=== PATIENT | female | born 1955 | race Caucasian/White ===

== ENCOUNTER → 2023-02-25 23:19 | Outpatient (CLI) | payer MEDICARE, MEDICAID, SELFPAY ==
[2023-02-25 19:49] LABS: Basophils # 0.1 K/mm3 (0-0.2); Basophils % 0.5 % (0.1-2.0); Eosinophils # 0.2 K/mm3 (0.0-0.4); Eosinophils % 2.2 % (0.1-12.0); Hematocrit 45.8 % (37.0-47.0); Hemoglobin 14.5 g/dL (12.2-16.2); Lymphocytes # 1.8 K/mm3 (0.7-4.5); Lymphocytes % 19.4 % (10-50); Mean Corpuscular HGB Conc 31.6 g/dL (31.8-35.4); Mean Corpuscular Hemoglobin 29.9 pg (27.0-31.2); Mean Corpuscular Volume 94.5 fl (81-99); Mean Platelet Volume 9.1 fl (7.4-10.4); Monocytes # 0.6 K/mm3 (0.1-1.0); Monocytes % 6.1 % (1.7-9.3); Neutrophils # 6.6 K/mm3 (1.8-7.8); Neutrophils % 71.8 % (37.0-80.0); Platelet Count 232 K/mm3 (142-424); Red Blood Count 4.85 M/mm3 (4.20-5.40); Red Cell Distribution Width 16.3 % (11.5-17.5); White Blood Count 9.2 K/mm3 (4.8-10.8)
[2023-02-25 19:54] LABS: Alanine Aminotransferase 19 U/L (12-78); Albumin Level 4.1 g/dl (3.5-5.0); Albumin/Globulin Ratio 1.4 (1.1-1.8); Alkaline Phosphatase 164 U/L (38-126); Aspartate Amino Transferase 25 U/L (14-36); Bilirubin,Total 0.5 mg/dl (0.2-1.3); Blood Urea Nitrogen 17 mg/dl (7-17); Calcium 9.3 mg/dl (8.4-10.2); Carbon Dioxide 26 mmol/L (22.0-30.0); Chloride 100 mmol/L (98-107); Estimated Glomerular Filt Rate 100 ml/min (>60); GFR (African American) 121 ML/MIN (>60); Glucose 84 mg/dl (74-100); Sodium 139 mmol/L (136-145); Total Protein,Serum 7.1 g/dl (6.3-8.2)
[2023-02-25 20:09] LABS: Erythrocyte Sedimentation Rate 17 mm/hr (0-30)
[2023-02-25 20:22] LABS: Thyroid Stimulating Hormone 1.73 uIU/mL (0.465-4.68)
[2023-02-25 20:40] LABS: Vitamin B12 346 pg/mL (239-931)
== END ==
PROVIDERS: PCP Family Medicine; Visit Provider Family Medicine
DX: G89.29 Other chronic pain (principal); M47.816 Spondylosis without myelopathy or radiculopathy, lumbar region; Z76.0 Encounter for issue of repeat prescription; Z79.899 Other long term (current) drug therapy
CPT/HCPCS: 80053; 82607; 84443; 85025; 85651

== ENCOUNTER → 2023-04-08 15:32 | Outpatient (CLI) | payer MEDICARE, MEDICAID, SELFPAY ==
[2023-04-08 18:12] LABS: Basophils # 0.1 K/mm3 (0-0.2); Basophils % 0.4 % (0.1-2.0); Eosinophils # 0.2 K/mm3 (0.0-0.4); Eosinophils % 1.6 % (0.1-12.0); Hematocrit 49.7 % (37.0-47.0); Hemoglobin 15.6 g/dL (12.2-16.2); Lymphocytes % 16.1 % (10-50); Mean Corpuscular HGB Conc 31.3 g/dL (31.8-35.4); Mean Corpuscular Hemoglobin 30.8 pg (27.0-31.2); Mean Corpuscular Volume 98.4 fl (81-99); Mean Platelet Volume 9.2 fl (7.4-10.4); Monocytes # 0.8 K/mm3 (0.1-1.0); Monocytes % 6.3 % (1.7-9.3); Neutrophils # 9.3 K/mm3 (1.8-7.8); Neutrophils % 75.6 % (37.0-80.0); Platelet Count 197 K/mm3 (142-424); Red Blood Count 5.06 M/mm3 (4.20-5.40); Red Cell Distribution Width 15.9 % (11.5-17.5); White Blood Count 12.4 K/mm3 (4.8-10.8)
[2023-04-08 18:30] LABS: Alanine Aminotransferase 23 U/L (12-78); Albumin Level 4.5 g/dl (3.5-5.0); Albumin/Globulin Ratio 1.4 (1.1-1.8); Alkaline Phosphatase 152 U/L (38-126); Anion Gap 16.8 mEq/L (5-15); Aspartate Amino Transferase 25 U/L (14-36); Bilirubin,Total 0.4 mg/dl (0.2-1.3); Blood Urea Nitrogen 23 mg/dl (7-17); Calcium 9.8 mg/dl (8.4-10.2); Carbon Dioxide 34 mmol/L (22.0-30.0); Chloride 96 mmol/L (98-107); Estimated Glomerular Filt Rate 100 ml/min (>60); GFR (African American) 121 ML/MIN (>60); Globulin 3.3 g/dL (1.3-3.2); Glucose 97 mg/dl (74-100); Potassium 4.8 mmoL/L (3.5-5.1); Sodium 142 mmol/L (136-145); Total Protein,Serum 7.8 g/dl (6.3-8.2)
== END ==
PROVIDERS: PCP Family Medicine; Visit Provider Family Medicine
DX: M47.816 Spondylosis without myelopathy or radiculopathy, lumbar region (principal); I48.91 Unspecified atrial fibrillation
CPT/HCPCS: 80053; 80162; 85025

== ENCOUNTER 2023-06-26 13:07 | Inpatient (IN) | payer MEDICARE, MEDICAID, SELFPAY ==
[2023-06-26] VITALS (20 sets, daily range): BP systolic 102–142; BP diastolic 50–92; PULSE 89–121; RESP 12–20; TEMP 36.7–37.2; O2SAT 90–98; BMI 31.7
--- NOTE | 2023-06-26 07:09 | IR_ITS ---
APPROVED REPORT Patient Location: Outpatient PROCEDURES Left heart catheterization Left ventriculogram Selective coronary angiogram Intravascular lithotripsy to the proximal LAD Drug-eluting stent deployment to the proximal LAD INDICATION Acute anterior ST elevation myocardial infarction, Coronary artery disease, Proximal coronary artery calcification Informed consent was obtained prior to the procedure. COMPLICATIONS None Estimated Blood Loss: Less than 10 ml TECHNIQUE One percent lidocaine used to anesthetize the right anterior aspect of the wrist. The right radial artery was accessed via the Seldinger technique. A 6 Faroese sheath was placed in the right radial artery. 2.5 mg of Verapamil, 800 mcg of nitroglycerin, 1mg Lidocaine and 5000 U Heparin were given through the arterial sheath. The papa catheter was also used to perform selective coronary angiography of the right coronary artery. During the engagement of the right coronary artery there was significant ST elevation identified on the EKG. Patient was restless with chest pain. The right coronary artery was widely patent therefore the catheter was inserted into the left main artery and angiography was performed. The proximal LAD was occluded. The acute anterior ST elevation myocardial infarction appeared to fortuitously occur during the diagnostic angiogram. At this point therapeutic Was administered giving a therapeutic ACT and a Choice PT extra-support wire was placed into the LAD. A 2.5 mm balloon was used to open the occluded LAD and restore CRISTO-3 flow. A 3 mm x 12 mm shockwave lithotripsy balloon was deployed at 8 and 10 mio for a full 80 pulsations throughout the proximal LAD. A 3.5 x 38 mm Sahil frontier stent was placed in the proximal LAD immediately proximal to the large diagonal artery and deployed at 20 mio. A 4 mm x 15 mm [place] frontier stent was placed proximal to the for stent yet still overlapping it and deployed at 18 mio. The balloon was advanced into the 3.5 mm stent and deployed at 18 mio in the proximal and mid 4/5 of the stent. At the end of the procedure CRISTO-3 flow was restored with CRISTO 0 flow present at the beginning of the procedure. During the procedure the apparatus was removed the sheath was removed good hemostasis was achieved and TR banding patient was transferred to the postop holding in stable condition ANGIOGRAPHIC RESULTS The left main artery Normal The left anterior descending artery Acutely occluded. Following revascularization the proximal and mid LAD was widely patent with excellent inline flow. Large first diagonal artery had a proximal 70 to 80% stenosis The circumflex artery Nondominant yet still large with proximal 20% stenosis and 20% stenosis of the large first obtuse marginal artery. A second obtuse marginal artery had 20% proximal stenoses as well The right coronary artery Is a large dominant vessel and has proximal 20% and 30% stenoses with a mid vessel eccentric 20 to 30% stenosis The KELLER ventriculogram reveals Dilated ventricle anterior wall hypokinesis estimate ejection fraction 20 to 25% The left ventricular end-diastolic pressure 30 mmHg IMPRESSION Acute on chronic occlusion of the LAD with fortuitous acute occlusion of the proximal vessel prior to angiography accompanied by profound ST elevation and chest pain Successful intravascular lithotripsy to the proximal LAD followed by drug-eluting stenting reducing the 100% occlusion to 0% with 2 contiguous drug-eluting stents Large anterior wall defect with reduced ejection fraction Elevated LVEDP PLAN 1. Plavix 75 mg plus aspirin 81 mg combined with Eliquis for the next 30 days and then discontinue aspirin while maintaining Plavix daily and Eliquis 2. Admission to the hospital due to acute anterio
[2023-06-26 08:51] LABS: Basophils # 0.1 K/mm3 (0-0.2); Basophils % 0.6 % (0.1-2.0); Eosinophils # 0.2 K/mm3 (0.0-0.4); Eosinophils % 2.2 % (0.1-12.0); Hematocrit 50.2 % (37.0-47.0); Hemoglobin 16.3 g/dL (12.2-16.2); Lymphocytes # 1.9 K/mm3 (0.7-4.5); Lymphocytes % 20.3 % (10-50); Mean Corpuscular HGB Conc 32.5 g/dL (31.8-35.4); Mean Corpuscular Hemoglobin 32.8 pg (27.0-31.2); Mean Platelet Volume 8.8 fl (7.4-10.4); Monocytes # 0.4 K/mm3 (0.1-1.0); Monocytes % 4.7 % (1.7-9.3); Neutrophils # 6.8 K/mm3 (1.8-7.8); Neutrophils % 72.2 % (37.0-80.0); Platelet Count 206 K/mm3 (142-424); Red Blood Count 4.97 M/mm3 (4.20-5.40); Red Cell Distribution Width 14.7 % (11.5-17.5); White Blood Count 9.4 K/mm3 (4.8-10.8)
[2023-06-26 08:56] LABS: Chloride 100 mmol/L (98-107); Sodium 138 mmol/L (136-145)
[2023-06-26 08:59] LABS: Blood Urea Nitrogen 9 mg/dl (7-17); Creatinine Clearance Estimated 67 mL/min (50-200); Estimated Glomerular Filt Rate 124 ml/min (>60); GFR (African American) 150 ML/MIN (>60)
[2023-06-26 09:00] LABS: Calcium 8.5 mg/dl (8.4-10.2); Carbon Dioxide 27 mmol/L (22.0-30.0); Glucose 153 mg/dl (74-100)
[2023-06-26 13:14] LABS: CATHL Activated Clotting Time 186 SEC (74-125)
--- NOTE | 2023-06-26 14:08 | HMH.PHAINT1 ---
Pharmacy Intervention Comments: MEDICATION RECONCILIATION COMPLETED ON PATIENT USING EXTERNAL FILL HISTORY FROM PHARMACY. -ISABELA NICK, KELLID
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
[2023-06-27] VITALS (11 sets, daily range): BP systolic 89–109; BP diastolic 45–78; PULSE 81–143; RESP 13–20; TEMP 36.7–37.2; O2SAT 92–97; BMI 31.7
--- NOTE | 2023-06-27 09:06 | CA_ITS ---
APPROVED REPORT EXAM: Comprehensive 2D, Doppler, and color-flow Echocardiogram [employer]: Polina Joyce RT(R) Ht: 5 ft 1 in Wt: 161lbs BSA: 1.72 BP: 119/76 mmHg Indications: Afib, CAD, EF 20-25% on cath 06/26/23, COPD, smoker, HTN, DM, hyperlipidemia, STEMI Echo Enhancing Agent Indication: Endocardial border delineation Agent(s) / Amount(s) Used: Definity 2 cc 2D Dimensions LVOT 1.77 cm (M/F) 1.5-2.5 LVEF (Linares's) 35.00 % F: 54 - 74 LV Volume 74.10 mL F: 46 - 106 LV Volume Index 43.08 mL/m2 F: 29 - 61 LA Volume 73.70 mL LA Volume Index 42.85 mL/m2 (M/F) 16-34 M-Mode Dimensions RVDd 3.26 cm (0.9-2.6) LA Diam 3.70 cm (1.9-4.0) LVDd 4.21 cm (3.5-5.7) Ao Diam 2.44 cm (2.0-3.7) LVDs 3.68 cm (3.5-5.7) IVSd 0.68 cm (0.6-1.1) PWd 0.80 cm (0.6-1.1) EF (Teich) 27.30% FS 12.60% EDV (Teich) 79.00 mL ESV (Teich) 57.40 mL Tricuspid Valve TR P. Velocity 283.00 cm/s RAP Estimate 15.00 mmHg RVSP 47.10 mmHg Left Ventricle The left ventricle is normal size. Left ventricular systolic function is severely decreased. There is normal left ventricular wall thickness. Severe global hypokinesis is present. There is akinesis of the septal, anteroseptal, anterior, anterolateral, and lateral LV sheth. Diastolic function is indeterminate due to atrial fibrillation. LVEF is 20%. Right Ventricle The right ventricle is mildly dilated. The right ventricular systolic function is mildly reduced. Atria The left atrium is mildly dilated. The right atrium is mildly dilated. There is no Doppler evidence of interatrial shunt. Aortic Valve The aortic valve is mildly thickened. There is no aortic valvular stenosis. Trace aortic regurgitation. Mitral Valve The mitral valve is mildly thickened. The posterior leaflet appears tethered with restricted motion. No evidence of mitral valve stenosis. Moderate mitral regurgitation (Clark class IIIB). The MR jet is eccentric and posteriorly directed in the setting of tethered posterior MV leaflet. Tricuspid Valve The tricuspid valve leaflets are thin and pliable. Moderate tricuspid regurgitation. Elevated RVSP 45-50 mmHg. Pulmonic Valve The pulmonary valve is grossly normal in structure. Trace pulmonic regurgitation. Great Vessels The aortic root is normal in size. The ascending aorta is normal in size. The IVC is normal in size, but collapses < 50% with respirophasic variation. RA pressure is estimated at 8 mmHg. Pericardium There is no pericardial effusion. A pleural effusion is present. Other Information Study Quality: Fair Conclusion Severe reduction in LV systolic function. Severe global hypokinesis is present. There is akinesis of the septal, anteroseptal, anterior, anterolateral, and lateral LV sheth. Mildly dilated RV with mild reduction in RV systolic function. Tethered posterior MV leaflet with moderate, eccentric posteriorly directed MR (Clark class IIIB). Moderate TR. Elevated RVSP 40-45 mmHg. Electronically signed by : Yudith Zamora MD 06/27/2023 10:58:18
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
[2023-06-27 10:07] LABS: Basophils # 0.1 K/mm3 (0-0.2); Basophils % 0.5 % (0.1-2.0); Eosinophils # 0.2 K/mm3 (0.0-0.4); Hemoglobin 15.5 g/dL (12.2-16.2); Lymphocytes # 1.7 K/mm3 (0.7-4.5); Lymphocytes % 15.9 % (10-50); Mean Corpuscular HGB Conc 33.7 g/dL (31.8-35.4); Mean Corpuscular Hemoglobin 34.4 pg (27.0-31.2); Mean Corpuscular Volume 102.1 fl (81-99); Mean Platelet Volume 8.8 fl (7.4-10.4); Monocytes # 0.7 K/mm3 (0.1-1.0); Monocytes % 6.2 % (1.7-9.3); Neutrophils # 7.9 K/mm3 (1.8-7.8); Neutrophils % 75.5 % (37.0-80.0); Platelet Count 202 K/mm3 (142-424); Red Cell Distribution Width 14.9 % (11.5-17.5); White Blood Count 10.5 K/mm3 (4.8-10.8)
[2023-06-27 10:14] LABS: Alanine Aminotransferase 19 U/L (12-78); Alkaline Phosphatase 104 U/L (38-126); Anion Gap 14.6 mEq/L (5-15); Aspartate Amino Transferase 26 U/L (14-36); Bilirubin,Direct 0.3 mg/dl (0.0-0.4); Bilirubin,Indirect 0.2 mg/dL (0.0-0.9); Bilirubin,Total 0.5 mg/dl (0.2-1.3); Bilirubin,Unconjugated 0.3 mg/dL (0.0-1.1); Blood Urea Nitrogen 12 mg/dl (7-17); Calcium 8.9 mg/dl (8.4-10.2); Carbon Dioxide 22 mmol/L (22.0-30.0); Chloride 105 mmol/L (98-107); Chol/HDL Ratio 4.1 (1-3.5); Cholesterol 107 mg/dl (140-200); Creatinine Clearance Estimated 67 mL/min (50-200); Estimated Glomerular Filt Rate 100 ml/min (>60); GFR (African American) 121 ML/MIN (>60); Glucose 177 mg/dl (74-100); HDL Cholesterol 26 mg/dl (40-60); Potassium 4.6 mmoL/L (3.5-5.1); Sodium 137 mmol/L (136-145); Triglycerides 124 mg/dl (30-150); VLDL Cholesterol 25 mg/dL (0-40)
--- NOTE | 2023-06-27 10:23 | PC.NURSE ---
Spoke with Guerline in regards to pt's Lifevest. List of documents needed: H&P, face sheet, cardiac consult, echo, heart cath report and note from Yanira Bautista. [phone].
[2023-06-27 10:25] LABS: Direct LDL Cholesterol 64.51 mg/dL (100-129)
--- NOTE | 2023-06-27 10:46 | PC.NURSE ---
Pt refused jardiance. Stated that she gets a rash from it.
--- NOTE | 2023-06-27 13:12 | HMH.PHAINT1 ---
Pharmacy Intervention Comments: DISCHARGE MEDICATION COUNSELING PROVIDED. DISCUSSED STARTING THE FOLLOWING: -ATORVASTATIN (FOR CHOLESTEROL, DAILY AT BEDTIME, WATCH FOR MUSCLE PAIN OR WEAKNESS) -PLAVIX (BLOOD THINNER, DAILY, BLEED/BRUISE RISK, BLEED LOCATION AND APPEARANCE, BUMP HEAD = GO TO ER TO RULE OUT BLEED) -JARDIANCE (PATIENT STATES SHE IS ALLERGIC, STATING IT CAUSES A RASH/HIVES TO DEVELOP ON HER HANDS, ADVISED HER TO TELL HOME PHARMACY THAT SHE DOES NOT NEED THIS MEDICATION, PATIENT STATES SHE TOLD CARDIOLOGY AND NURSE BAIRES STATES THAT CARDIOLOGY WAS MADE AWARE.) -SPIRONOLACTONE (FLUID PILL, DAILY, BREAST PAIN POSSIBLE) PATIENT VERBALIZED NO QUESTIONS AT THIS TIME.
--- NOTE | 2023-06-27 14:05 | PC.NURSE ---
Joana in with pt explaining Lifevest.
--- NOTE | 2023-06-30 11:43 | EXP.DC.SUM ---
General Admission date:: 06/26/23 Discharge date: 06/27/23 HPI HPI HPI: Patient is a 67-year-old female with past medical history of CAD, tobacco use presented to hospital due to cardiac cath procedure patient had abnormal cardiac work-up, patient was recommended to get cardiac cath. On my evaluation patient is a s/p cardiac cath, she denies chest pain shortness of breath nausea vomiting diarrhea constipation dysuria fevers and chills, she denies active chest pain. Hospital Course Hospital Course Hospital Course: Patient is a 67-year-old female with past medical history of CAD, tobacco use presented to hospital due to cardiac cath procedure patient had abnormal cardiac work-up, patient was recommended to get cardiac cath. On my evaluation patient is a s/p cardiac cath, she denies chest pain shortness of breath nausea vomiting diarrhea constipation dysuria fevers and chills, she denies active chest pain. Assessment CAD status post cardiac stress test ST elevation IL ST elevation IL Hypertension Hyperlipidemia Chronic pain History of Asthma Diabetes mellitus Patient was prescribed medications recommended by cardiology, patient felt better and cardiology cleared patient for discharge, patient was discharged in stable conditions. Exam Data for Last 24 hours Vital signs and Labs for Last 24 Hours: Temp Pulse Resp BP Pulse Ox O2 Del Method O2 Flow Rate 98.9 F 112 H 20 90/50 L 93 L Room Air 2 06/27/23 12:00 06/27/23 12:00 06/27/23 12:00 06/27/23 12:00 06/27/23 12:00 06/27/23 13:00 06/26/23 15:31 I & O for Last 24 hours: Intake & Output 06/27/23 06/28/23 06/29/23 06/30/23 23:59 23:59 23:59 23:59 Intake Total 942 / 942 Output Total 0 / 0 Balance 942 / 942 Weight 76.2 kg Constitutional Constitutional: no acute distress *Routine HEENT Exam Head: Present normocephalic Eye: Present EOMI and PERRL ENT: Present mucous membranes moist *Routine Neck Exam Neck: Present supple; Absent lymphadenopathy *Routine Respiratory Exam Respiratory: Present CTA bilaterally *Routine Cardiovascular Exam Cardiovascular: Present RRR *Routine Abdominal Exam Abdominal: Present soft and normoactive bowel sounds; Absent tenderness *Routine Extremities Exam Extremities: Absent cyanosis, clubbing or edema *Routine Skin Exam Skin: Present warm; Absent rash *Routine Neurological Exam Neurological: Present alert and oriented X3 DS: Diagnosis Discharge Diagnosis (1) ST elevation myocardial infarction (STEMI) of anterior wall: Status: Acute Code(s): I21.09 - ST elevation (STEMI) myocardial infarction involving other coronary artery of anterior wall (2) Coronary artery disease: Status: Acute Code(s): I25.10 - Atherosclerotic heart disease of [place] coronary artery without angina pectoris Qualifiers: Coronary Disease-Associated Artery/Lesion type: [place] artery [place] vs. transplanted heart: [place] heart Associated angina: without angina Qualified Code(s): I25.10 - Atherosclerotic heart disease of [place] coronary artery without angina pectoris (3) Stented coronary artery: Status: Acute Code(s): Z95.5 - Presence of coronary angioplasty implant and graft (4) HFrEF (heart failure with reduced ejection fraction): Status: Acute Code(s): I50.20 - Unspecified systolic (congestive) heart failure (5) Ischemic cardiomyopathy: Status: Acute Code(s): I25.5 - Ischemic cardiomyopathy (6) Elevated left ventricular end-diastolic pressure (LVEDP): Status: Acute Code(s): R94.30 - Abnormal result of cardiovascular function study, unspecified (7) Hypertension: Status: Acute Code(s): I10 - Essential (primary) hypertension Qualifiers: Hypertension type: primary hypertension Qualified Code(s): I10 - Essential (primary) hypertension (8) Hyperlipidemia: Status: Acute Code(s): E78.5 - Hyperlip
--- NOTE | 2023-06-30 11:54 | CARE MANAGER ---
Called and spoke with patient regarding recent discharge. Patient stated that she is doing well. She states that she has started all new medication with the exception of Jardiance, which she says she is allergic to. I explained that she should call and let cardiology know that she isn't taking it. No other concerns voiced at this time.
== END 2023-06-27 14:46 | disposition home or self-care (01) | DRG 324 ==
LOC: 2ND 13:08
PROVIDERS: Internal Medicine; Nurse Practitioner Family; Admitting Provider Internal Medicine; PCP Family Medicine; Visit Provider Internal Medicine
PROC: 027035Z Dilation of Coronary Artery, One Artery with Two Drug-eluting Intraluminal Devices, Percutaneous Approach (ICD-10-PCS; principal; 2023-06-26 10:00)
DX: I21.09 ST elevation (STEMI) myocardial infarction involving other coronary artery of anterior wall (principal); I48.20 Chronic atrial fibrillation, unspecified; I50.22 Chronic systolic (congestive) heart failure; I25.5 Ischemic cardiomyopathy; J44.9 Chronic obstructive pulmonary disease, unspecified; R94.39 Abnormal result of other cardiovascular function study; Z72.0 Tobacco use; I25.10 Atherosclerotic heart disease of native coronary artery without angina pectoris; E11.9 Type 2 diabetes mellitus without complications; Z96.652 Presence of left artificial knee joint; Z95.5 Presence of coronary angioplasty implant and graft; I11.0 Hypertensive heart disease with heart failure; Z79.01 Long term (current) use of anticoagulants; E78.2 Mixed hyperlipidemia; Z71.6 Tobacco abuse counseling
CPT/HCPCS: 0715T; 36415; 80048; 80061; 80076; 85025; 85347; 92941; 93306; 93458; 99152; 99153; C1725; C1761; C1769; C1876; C9606; J1644; Q9957; Q9967

== ENCOUNTER 2023-07-17 09:26 | Day surgery (SDC) | payer MEDICARE, SELFPAY ==
--- NOTE | 2023-07-17 09:37 | CA_ITS ---
APPROVED REPORT EXAM: Comprehensive 2D, 3D, Doppler, and color-flow Echocardiogram Teacher Private: Grace Benavides RVT Ht: 5 ft 1 in Wt: 161lbs BSA: 1.72 BP: 106/62 mmHg Indications: A-FIB,COPD,CAD,CM,SMOKER,DM Procedure After obtaining informed consent, patient underwent transesophageal echo in the [facility]. Type of Sedation : MAC Sedation was administered by Ranjana Cortés. Sedation start time: 12:20 Case end Time: 13:00 Propofol () The EVELYN was performed without complications. Synchronized Cardioversion acheived with 150 Joules after 1 attempt(s). Rhythm following Synchronized Cardioversion: Normal Sinus Rhythm Throughout the procedure, the blood pressure, pulse oximetry, cardiac rhythm, and rate were monitored. The patient tolerated the procedure without adverse effects. Recovery from conscious sedation was uneventful and vital signs were stable. Left Ventricle The left ventricle is normal size. Left ventricular systolic function is moderate to severely decreased. There is normal left ventricular wall thickness. There is severe hypokinesis of the septal, anterior, anterolateral, and anteroseptal LV sheth. LVEF is 30%. Right Ventricle Right ventricle is mildly dilated. Right ventricle is mildly hypokinetic. Atria Left atrium is mildly dilated. No thrombus is visualized in the left atrium or appendage. Right atrium is mildly dilated. Interatrial septum is intact without evidence of ASD or PFO. Aortic Valve The aortic valve is mildly thickened. There is a small fixed echodensity on the non-coronary cusp of the aortic valve. This possiblyrepresents a small fibroelastoma. There is no aortic valvular stenosis. Trace aortic regurgitation. Mitral Valve The mitral valve leaflets are mildly thickened. No evidence of mitral valve stenosis. Moderate mitral regurgitation. The mechanism of MR is difficult to estimate, but is likely due to dilated LA and mild tethering of the posterior MV leaflet (Clark class IIIB). Tricuspid Valve The tricuspid valve leaflets are thin and pliable. Severe tricuspid regurgitation. RVSP is 30 mmHg + RA pressure. Pulmonic Valve The pulmonary valve is normal in structure. Trace pulmonic regurgitation. Great Vessels The aortic root is normal in size. The ascending aorta is normal in size. There is atherosclerosis present in the aortic arch. Pericardium There is no pericardial effusion. Other Information Study Quality: Fair Conclusion Moderate to severe reduction in LV systolic function (LVEF 30%). Mild RV dysfunction. Mild biatrial dilation. No evidence of LA or RONNA thrombus. Small fixed echodensity on the non-coronary cusp of the aortic valve. This possiblyrepresents a small fibroelastoma. Moderate MR (likely mixed etiology due to LA dilation and mild tethering of posterior MV leaflet, Clark class IIIB) Severe TR. RVSP 30 mmHg + RA pressure. Atherosclerosis in the aortic arch. Electronically signed by : Yudith Zamora MD 07/18/2023 20:45:35
[2023-07-17 11:04] VITALS: BP 107/60; PULSE 95; RESP 18; TEMP 36.5; O2SAT 95; BMI 28.5
[2023-07-17 11:08] VITALS: BMI 28.5
[2023-07-17 11:11] LABS: POC Glucose,Bedside 144 (70-110)
[2023-07-17 11:15] LABS: Basophils # 0.1 K/mm3 (0-0.2); Basophils % 0.6 % (0.1-2.0); Eosinophils # 0.2 K/mm3 (0.0-0.4); Eosinophils % 2.1 % (0.1-12.0); Hematocrit 46.8 % (37.0-47.0); Hemoglobin 16.2 g/dL (12.2-16.2); Lymphocytes # 1.7 K/mm3 (0.7-4.5); Lymphocytes % 14.6 % (10-50); Mean Corpuscular HGB Conc 34.6 g/dL (31.8-35.4); Mean Corpuscular Hemoglobin 34.3 pg (27.0-31.2); Mean Corpuscular Volume 99.2 fl (81-99); Monocytes # 0.7 K/mm3 (0.1-1.0); Monocytes % 5.8 % (1.7-9.3); Neutrophils # 8.7 K/mm3 (1.8-7.8); Neutrophils % 76.8 % (37.0-80.0); Platelet Count 182 K/mm3 (142-424); Red Blood Count 4.72 M/mm3 (4.20-5.40); Red Cell Distribution Width 14.5 % (11.5-17.5); White Blood Count 11.3 K/mm3 (4.8-10.8)
--- NOTE | 2023-07-17 11:20 | ECG_ITS ---
APPROVED REPORT Exam: Resting ECG HR:104 bpm ECG Measurements Heart Rate 104 AXES QRSd 98 QRS 68 QT 352 T 86 QTc 412 Conclusion ATRIAL FIBRILLATION WITH RAPID VENTRICULAR RESPONSE LOW QRS VOLTAGE IN PRECORDIAL LEADS [QRS DEFLECTION < 1.0 mV IN CHEST LEADS] POSSIBLE RIGHT VENTRICULAR CONDUCTION DELAY [RSR (QR) IN V1/V2] ANTEROSEPTAL MYOCARDIAL INFARCTION , OF INDETERMINATE AGE [40+ ms Q WAVE IN V1-V4] ABNORMAL ECG UNCONFIRMED REPORT Electronically signed by : Holden Caban MD 07/17/2023 17:29:42
[2023-07-17 11:27] LABS: Anion Gap 14.4 mEq/L (5-15); Blood Urea Nitrogen 15 mg/dl (7-17); Calcium 9.3 mg/dl (8.4-10.2); Carbon Dioxide 26 mmol/L (22.0-30.0); Chloride 104 mmol/L (98-107); Creatinine Clearance Estimated 61 mL/min (50-200); Estimated Glomerular Filt Rate 100 ml/min (>60); GFR (African American) 121 ML/MIN (>60); Glucose 150 mg/dl (74-100); Potassium 4.4 mmoL/L (3.5-5.1); Sodium 140 mmol/L (136-145)
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
[2023-07-17 11:46] LABS: INR 1.08 (0.9-1.1); Prothrombin Time 11.6 seconds (10.1-12.5)
--- NOTE | 2023-07-17 13:00 | SUR.OPER ---
1255- pt successfully cardioverted by Dr. Zamora at this time. pt was shocked at 150j. respiratory at bedside at 1300 for ekg
--- NOTE | 2023-07-17 13:02 | ECG_ITS ---
APPROVED REPORT Exam: Resting ECG HR:71 bpm ECG Measurements Heart Rate 71 AXES IA 215 P 52 QRSd 106 QRS 81 QT 414 T 86 QTc 437 Conclusion SINUS RHYTHM WITH FIRST DEGREE AV BLOCK WITH OCCASIONAL SUPRAVENTRICULAR PREMATURE COMPLEXES LOW QRS VOLTAGE IN PRECORDIAL LEADS [QRS DEFLECTION < 1.0 mV IN CHEST LEADS] POSSIBLE RIGHT VENTRICULAR CONDUCTION DELAY [RSR (QR) IN V1/V2] SEPTAL MYOCARDIAL INFARCTION , PROBABLY OLD [40+ ms Q WAVE IN V1/V2] ABNORMAL ECG UNCONFIRMED REPORT Electronically signed by : Holden Caban MD 07/17/2023 17:28:54
[2023-07-17 13:04] VITALS: BP 115/71; PULSE 72; RESP 17; TEMP 36.9; O2SAT 95
[2023-07-17 13:14] VITALS: BP 125/87; PULSE 70; RESP 17; O2SAT 96
[2023-07-17 13:24] VITALS: BP 100/74; PULSE 78; RESP 16; O2SAT 96
[2023-07-17 13:51] VITALS: BP 106/63; PULSE 69; RESP 17; O2SAT 98
== END 2023-07-17 13:53 | disposition home or self-care (01) ==
PROVIDERS: PCP Family Medicine; Visit Provider Internal Medicine
DX: I48.20 Chronic atrial fibrillation, unspecified (principal); Z79.899 Other long term (current) drug therapy; E11.9 Type 2 diabetes mellitus without complications; Z79.84 Long term (current) use of oral hypoglycemic drugs; J44.9 Chronic obstructive pulmonary disease, unspecified; I10 Essential (primary) hypertension; E78.5 Hyperlipidemia, unspecified; I25.2 Old myocardial infarction; I25.5 Ischemic cardiomyopathy; F17.210 Nicotine dependence, cigarettes, uncomplicated
CPT/HCPCS: 80048; 82962; 85025; 85610; 92960; 93005; 93312

== ENCOUNTER → 2023-07-24 11:02 | Outpatient (CLI) | payer MEDICARE, SELFPAY ==
[2023-07-24 12:16] LABS: Alanine Aminotransferase 21 U/L (12-78); Albumin Level 4.2 g/dl (3.5-5.0); Alkaline Phosphatase 109 U/L (38-126); Aspartate Amino Transferase 24 U/L (14-36); Bilirubin,Direct 0.2 mg/dl (0.0-0.4); Bilirubin,Indirect 0.2 mg/dL (0.0-0.9); Bilirubin,Total 0.4 mg/dl (0.2-1.3); Bilirubin,Unconjugated 0.2 mg/dL (0.0-1.1); Blood Urea Nitrogen 17 mg/dl (7-17); Calcium 9.1 mg/dl (8.4-10.2); Carbon Dioxide 27 mmol/L (22.0-30.0); Chloride 98 mmol/L (98-107); Estimated Glomerular Filt Rate 100 ml/min (>60); GFR (African American) 121 ML/MIN (>60); Glucose 103 mg/dl (74-100); Sodium 136 mmol/L (136-145); Total Protein,Serum 7.3 g/dl (6.3-8.2)
[2023-07-24 12:30] LABS: Triiodothryronine (T3) Uptake 36 % (23.5-40.5)
[2023-07-24 12:32] LABS: Free Thyroxine Index 3.1 ug/dL (5.93-13.13); T4 (Thyroxine) 8.7 ug/dl (5.53-11.0)
[2023-07-24 12:44] LABS: Thyroid Stimulating Hormone 1.71 uIU/mL (0.465-4.68)
== END ==
PROVIDERS: PCP Family Medicine; Visit Provider Internal Medicine
DX: E11.9 Type 2 diabetes mellitus without complications (principal); I42.9 Cardiomyopathy, unspecified; I48.91 Unspecified atrial fibrillation; J44.9 Chronic obstructive pulmonary disease, unspecified; Z72.0 Tobacco use; Z79.84 Long term (current) use of oral hypoglycemic drugs; Z79.85 Long-term (current) use of injectable non-insulin antidiabetic drugs
CPT/HCPCS: 36415; 80048; 80076; 84436; 84443; 84479

== ENCOUNTER 2023-10-16 21:56 | Outpatient (CLI) | payer MEDICARE, SELFPAY ==
[2023-10-16 19:37] LABS: Barbiturates Screen,Urine Negative ng/ml (<200)
[2023-10-16 19:47] LABS: Amphetamine/Metha Screen,Urine Negative ng/ml (<1000)
[2023-10-16 19:48] LABS: Benzodiazepines Screen,Urine Negative ng/ml (<200)
[2023-10-16 19:49] LABS: Cannabinoid Screen,Urine Negative ng/ml (<50); Cocaine Screen,Urine Negative ng/ml (<300)
[2023-10-16 19:53] LABS: Opiate Screen,Urine Positive ng/ml (<300)
[2023-10-16 22:24] LABS: Methadone Screen,Urine Negative ng/ml (<300)
[2023-10-17 00:08] LABS: Phencyclidine Screen,Urine Negative ng/ml (<25)
== END 2023-10-16 23:59 ==
LOC: LAB.DROPOF 21:57
PROVIDERS: PCP Family Medicine; Visit Provider Family Medicine
DX: Z79.899 Other long term (current) drug therapy (principal)
CPT/HCPCS: 80307